=== PATIENT | female | born 1955 | race Caucasian/White ===

== ENCOUNTER → 2017-05-06 | Outpatient (CLI) | payer BC ==
--- NOTE | 2017-05-08 13:01 | MM ---
Reason for exam: screening (asymptomatic). Last mammogram was performed 1 year ago. History: Patient is postmenopausal. Took hormonal contraceptives for 4 years beginning at age 20. Physical Findings: A clinical breast exam by your physician is recommended on an annual basis and results should be correlated with mammographic findings. MG Screening Mammo w CAD Bilateral CC and MLO view(s) were taken. Prior study comparison: April 30, 2016, bilateral MG screening mammo w CAD. April 28, 2015, bilateral MG screening mammo w CAD. The breast tissue is heterogeneously dense. This may lower the sensitivity of mammography. No significant changes when compared with prior studies. ASSESSMENT: Benign, BI-RAD 2 RECOMMENDATION: Routine screening mammogram of both breasts in 1 year.
== END | disposition home or self-care (01) ==
LOC: RADMAMWWP 13:38
PROVIDERS: ATTEND Family Medicine
DX: Z12.31 Encounter for screening mammogram for malignant neoplasm of breast (principal)

== ENCOUNTER → 2018-05-07 | Outpatient (CLI) | payer BC ==
--- NOTE | 2018-05-09 07:47 | MM ---
Reason for exam: screening (asymptomatic). Last mammogram was performed 1 year ago. History: Patient is postmenopausal. Took hormonal contraceptives for 4 years beginning at age 20. Physical Findings: A clinical breast exam by your physician is recommended on an annual basis and results should be correlated with mammographic findings. MG 3D Screening Mammo W/Cad Bilateral CC and MLO view(s) were taken. Prior study comparison: May 06, 2017, bilateral MG screening mammo w CAD. April 30, 2016, bilateral MG screening mammo w CAD. There are scattered fibroglandular densities. No significant changes when compared with prior studies. ASSESSMENT: Benign, BI-RAD 2 RECOMMENDATION: Routine screening mammogram of both breasts in 1 year.
== END | disposition home or self-care (01) ==
LOC: RADMAMWWP 10:33
PROVIDERS: ATTEND Family Medicine
DX: Z12.31 Encounter for screening mammogram for malignant neoplasm of breast (principal)
CPT/HCPCS: 77063; 77067

== ENCOUNTER 2019-03-23 07:39 | Day surgery (SDC) | payer BC ==
[2019-03-18 16:53] VITALS: BMI 20.7
[~2019-03-23 07:39] MED LIST: LACTATED RINGERS 1,000 ML IV SCH
[2019-03-23 08:12] VITALS: TEMP 96.6
[2019-03-23] MEDS ORDERED: LIDOCAINE 1% 20 ML VIAL (10MG/ML) FOR IV START INTRADERMA ONE (08:18)
[2019-03-23 08:22] LABS: Glucose,Whole Blood 137 mg/dL (75-99)
[2019-03-23] MEDS ORDERED: PROPOFOL 10 MG/ML 20 ML VIAL IV ONE (09:11)
[2019-03-23] MEDS ORDERED: LIDOCAINE 1% INJ 10MG/ML (20 ML MDV) ONE (09:11)
--- NOTE | 2019-03-23 09:38 | P.PCN ---
Date of Procedure: 03/23/19 Procedure(s) Performed: Procedure: Total colonoscopy. Preoperative diagnosis: Screening for neoplasia. Postoperative diagnosis: Mild sigmoid diverticulosis, otherwise, exam to the cecum shows no evidence of acute diverticulitis, strictures, polyps or cancer. Preparation: HalfLytely prep. Sedation: Was provided by anesthesia. Brief clinical history: The patient is a 63-year-old female who is scheduled for this evaluation for screening for neoplasia age being her risk factor. Her prior exam was 8-10 years ago. The patient has no abdominal complaints, bleeding or anemia. Procedure: With the patient on her left lateral decubitus position and after informed consent and adequate sedation, the perianal area was inspected and it did not show any fissures or fistulas. There were no masses felt on digital rectal examination. The Olympus CFH 190L video colonoscope was then inserted in the rectum in the usual fashion and advanced to the cecum. There were few small diverticular orifices seen scattered in the distal sigmoid but I saw no evidence of acute diverticulitis or strictures. The mucosa appeared healthy. No polyps or tumors were seen. I retroflexed the endoscope in the rectum before the endoscope was withdrawn. The patient tolerated the procedure well. Plan: The patient was reassured. Discussed dietary measures. She will follow- up with you as planned and I recommended repeat exam in 10 years.
[2019-03-23 09:45] VITALS: RESP 16
[2019-03-23 09:52] VITALS: BP 102/70; PULSE 75
== END 2019-03-23 10:21 | disposition home or self-care (01) ==
LOC: ORWHC2ENDO 07:39
DX: Z12.11 Encounter for screening for malignant neoplasm of colon (principal); K57.30 Diverticulosis of large intestine without perforation or abscess without bleeding; E11.9 Type 2 diabetes mellitus without complications; K21.9 Gastro-esophageal reflux disease without esophagitis; E78.5 Hyperlipidemia, unspecified; I10 Essential (primary) hypertension; G80.9 Cerebral palsy, unspecified; Z98.51 Tubal ligation status
CPT/HCPCS: J2001; J2704; G0121; 45378

== ENCOUNTER → 2019-05-18 | Outpatient (CLI) | payer BC ==
--- NOTE | 2019-05-19 08:05 | MM ---
Reason for exam: screening (asymptomatic). Last mammogram was performed 1 year ago. History: Patient is postmenopausal. Took hormonal contraceptives for 4 years beginning at age 20. Physical Findings: A clinical breast exam by your physician is recommended on an annual basis and results should be correlated with mammographic findings. MG 3D Screening Mammo W/Cad Bilateral CC and MLO view(s) were taken. Prior study comparison: May 07, 2018, bilateral MG 3d screening mammo w/cad. May 06, 2017, bilateral MG screening mammo w CAD. The breast tissue is heterogeneously dense. This may lower the sensitivity of mammography. Stable benign calcifications. No significant changes when compared with prior studies. ASSESSMENT: Benign, BI-RAD 2 RECOMMENDATION: Routine screening mammogram of both breasts in 1 year.
== END | disposition home or self-care (01) ==
LOC: RADMAMWWP 08:05
PROVIDERS: ATTEND Family Medicine
DX: Z12.31 Encounter for screening mammogram for malignant neoplasm of breast (principal)
CPT/HCPCS: 77063; 77067

== ENCOUNTER → 2019-05-18 | Outpatient (CLI) | payer BC | END | disposition home or self-care (01) | LOC: LABWHC1 08:35 | PROVIDERS: ATTEND Orthopaedic Surgery | DX: Z01.812 Encounter for preprocedural laboratory examination (principal); M16.11 Unilateral primary osteoarthritis, right hip | CPT/HCPCS: 87070 ==

== ENCOUNTER → 2019-05-21 | Outpatient (CLI) | payer BC ==
[2019-05-21 16:40] LABS: HCT 44.9 % (34.0-46.0); HGB 15.1 gm/dL (11.4-16.0); MCH 31.5 pg (25.0-35.0); MCHC 33.6 g/dL (31.0-37.0); MCV 93.8 fL (80.0-100.0); Mean Platelet Volume 7.2; Platelet Count 269 k/uL (150-450); RBC 4.79 m/uL (3.80-5.40); RDW 13.3 % (11.5-15.5); WBC 8.9 k/uL (3.8-10.6)
[2019-05-21 16:50] LABS: ALT 28 U/L (9-52); AST 28 U/L (14-36); African American GFR (CKD) >90 (>60 ml/min/1.73 sqM); Albumin 4.6 g/dL (3.5-5.0); Alkaline Phosphatase 51 U/L (38-126); Anion Gap 13 mmol/L; Blood Urea Nitrogen 20 mg/dL (7-17); Calcium 9.8 mg/dL (8.4-10.2); Carbon Dioxide 26 mmol/L (22-30); Chloride 103 mmol/L (98-107); Glucose 122 mg/dL (74-99); Potassium 3.4 mmol/L (3.5-5.1); Sodium 142 mmol/L (137-145); Total Bilirubin 0.7 mg/dL (0.2-1.3); Total Protein 7.7 g/dL (6.3-8.2)
[2019-05-21 16:58] LABS: Prothrombin Time 10.7 sec (9.0-12.0)
== END | disposition home or self-care (01) ==
LOC: LABPAT 15:58
PROVIDERS: ATTEND Orthopaedic Surgery
DX: Z01.812 Encounter for preprocedural laboratory examination (principal)
CPT/HCPCS: 36415; 80053; 85027; 85610

== ENCOUNTER 2019-05-25 08:59 | Inpatient (IN) | payer BC ==
[2019-05-15 09:32] VITALS: BMI 20.2
--- NOTE | 2019-05-24 19:20 | HP ---
HISTORY AND PHYSICAL REASON FOR ADMISSION: Surgery is scheduled for 05/25/2019 HISTORY OF PRESENT ILLNESS: This is a 63-year-old patient seen with symptomatic right hip osteoarthritis. We discussed options for treatment. She elected to proceed with right total hip arthroplasty. Consent was obtained. Medical clearance was provided by Dr. Israel Russell. PAST MEDICAL HISTORY: Gml-okjrrto-vmkhlcmpg diabetes, hyperlipidemia, hypertension, cerebral palsy. PAST SURGICAL HISTORY: section, right arm reconstruction. MEDICATIONS: Atenolol, atorvastatin, losartan, metformin, omeprazole. ALLERGIES: None. SOCIAL HISTORY: She denies tobacco use. PHYSICAL EXAMINATION: Physical evaluation of the right hip: There is limited range of motion. Diffuse muscular atrophy consistent with her history of cerebral palsy, spasticity of the right lower extremity, right lower extremity approximately 2 inches shorter than the left. Impingement sign is positive. Distal neurovascular exam is intact. RADIOGRAPHS: Right hip radiographs reveal severe osteoarthritic changes. IMPRESSION: 1. Right hip osteoarthritis. 2. Cerebral palsy. 3. Hypertension. 4. Hyperlipidemia. 5. Tcb-wlkvlne-tiytaqeoh diabetes. PLAN: Direct anterior right total hip arthroplasty. Surgery 05/25/2019. MMODL / IJN: [id number] /
[~2019-05-25 08:59] MED LIST changes: +ACETAMINOPHEN TAB 500 MG TAB PO ONE; +HYDROmorphone 0.5 MG/0.5 ML SYRINGE IVP PRN; -LACTATED RINGERS 1,000 ML IV SCH; +LIDOCAINE 1% 20 ML VIAL (10MG/ML) FOR IV START INTRADERMA PRN; +MELOXICAM 7.5 MG TAB PO ONE; +ONDANSETRON 4 MG/2 ML VIAL IVP ONE; +ROPIVACAINE 246.25 MG, EPINEPHrine 0.5 MG, KETOROLAC 30 MG, cloNIDine HCL/PF 80 MCG, WA... MISCELLANE ONE; +TRANEXAMIC ACID 1,000 MG in SODIUM CHLORIDE 0.9% 100 ML IVPB ONE
[2019-05-25] MEDS ORDERED: ROPIVACAINE 246.25 MG, EPINEPHrine 0.5 MG, KETOROLAC 30 MG, cloNIDine HCL/PF 80 MCG, WA... MISCELLANE ONE ×5 (09:31)
[2019-05-25] MEDS ORDERED: DEXAMETHASONE SOD PHOSPHATE 10 MG/ML 1 ML VIAL IV ONE (09:50)
[2019-05-25] MEDS: LACTATED RINGERS 1,000 ML IV SCH ×4 (09:52→23:32)
[2019-05-25 10:02] LABS: Glucose,Whole Blood 139 mg/dL (75-99)
[2019-05-25] MEDS ORDERED: ePHEDrine SULFATE/0.9% NACL/PF 50 MG/5 ML SYRINGE IV ONE (10:07)
[2019-05-25] MEDS ORDERED: PHENYLEPHRINE-0.9% NACL SYG 1 MG/10 ML SYRINGE ONE (10:07)
[2019-05-25] MEDS ORDERED: TRANEXAMIC ACID 1,000 MG/10 ML VIAL ONE (10:07)
[2019-05-25] MEDS ORDERED: fentaNYL (PF) 50 MCG/ML 2 ML AMP ONE (10:07)
[2019-05-25] MEDS ORDERED: MIDAZOLAM 2 MG/2 ML VIAL ONE (10:07)
[2019-05-25] MEDS ORDERED: PROPOFOL 10 MG/ML 20 ML VIAL IV ONE (10:07)
[2019-05-25] MEDS ORDERED: LIDOCAINE 1% INJ 10MG/ML (20 ML MDV) ONE (10:07)
[2019-05-25] MEDS ORDERED: SODIUM CHLORIDE 0.9% 100 ML BAG ONE (10:07)
[2019-05-25] MEDS ORDERED: GLYCOPYRROLATE 0.2 MG/ML 2 ML VIAL ONE (10:07)
[2019-05-25] MEDS ORDERED: LACTATED RINGERS 1,000 ML IV ONE ×2 (10:09→12:01)
[2019-05-25] MEDS ORDERED: ceFAZolin 3,000 MG in SODIUM CHLORIDE 0.9% IRRIGATIO 3,000 ML IRRIGATION ONE (10:47)
[2019-05-25] MEDS ORDERED: HYDROcodone/APAP 5-325MG 1 EACH TAB PO PRN (11:52)
[2019-05-25] MEDS ORDERED: NALOXONE 0.4 MG/ML 1 ML VIAL IV PRN (11:52)
[2019-05-25] MEDS ORDERED: HYDROmorphone 0.5 MG/0.5 ML SYRINGE IVP PRN ×2 (11:52)
[2019-05-25] MEDS ORDERED: HYDROmorphone 1 MG/ML 1 ML SYRINGE IVP PRN (11:52)
--- NOTE | 2019-05-25 11:52 | P.OP ---
Date of Procedure: 05/25/19 Preoperative Diagnosis: Right hip osteoarthritis Postoperative Diagnosis: Right hip osteoarthritis Procedure(s) Performed: Direct anterior right total hip arthroplasty Implants: 1. Depuy Corail KA size 11 standard collar press-fit femoral stem 2. Depuy pinnacle 52 mm press-fit acetabular shell 3. Depuy pinnacle polyethylene acetabular liner neutral 36 mm ID 50 mm OD 4. Depuy metal femoral head 36 mm -2 Anesthesia: local, spinal Surgeon: Ludwin Bell Gear Straightener #1: Riaz Last Estimated Blood Loss (ml): 150 Pathology: other (Femoral head) Condition: stable Disposition: PACU Indications for Procedure: 63-year-old patient seen with symptomatic right hip osteoarthritis. After treatment options were discussed, she elected to proceed with total hip arthroplasty. Operative Findings: See description of procedure Description of Procedure: The patient was taken to the operative suite. Patient underwent a spinal anesthetic by the department of anesthesia. Patient was then transferred to the [place] table. Patient was given preoperative IV antibiotics and TXA. Both lower extremities were placed in standard leg spars. The hip was then prepped and draped in the normal sterile orthopedic fashion. A standard anterior incision was made beginning 3 cm lateral and 1 cm distal to the ASIS extending 10 cm. Dissection was then carried down through the subcutaneous soft tissues down to the fascia overlying the tensor fascia juan josé. An incision was now made through the fascia. Careful dissection was taken down exposing the tensor fascia juan josé muscle. A Cobra retractor was now placed along the medial femoral neck and a second one along the lateral femoral neck. The venous circumflex vessels were now identified, cauterized and clipped. We identified the anterior hip capsule. An incision was made through the hip capsule along the lateral border. I performed a partial anterior capsulectomy. Retractors were now placed around the femoral neck itself. A femoral neck cut was now made with a sagittal saw. It was completed with an osteotome at the lateral neck area. The femoral head was now removed without difficulty. The extremity was now rotated to 45 of external rotation. It was locked in position. Residual labrum was now debrided out. Serial reaming was performed of the acetabulum while Rubén COBURN assisted holding an anterior retractor for exposure. Once we reached the appropriate size and a trial was position and fit nicely. The appropriate size was now chosen opened and made available. It was introduced into the acetabulum without difficulty. The C-arm/fluoroscopy was now brought into the operative field. We made sure we had a true AP pelvic view. We now under direct C- arm/fluoroscopy introduced into the acetabular component with appropriate version and inclination. I held the cup in appropriate position well Rubén COBURN used a mallet to seat the acetabular component. I noted the component now to be well seated and stable. Acetabular cup introduce her was removed. The C-arm was pulled back. An appropriate liner was introduced and clicked into position. It was felt to be stable. At this point retractors were removed. The extremity was now placed into 120 external rotation with no traction. The leg was now dropped to the ground and adducted. Appropriate retractors were now positioned along the proximal femur. We also placed our femoral look into position. Additional capsular releasing was performed to gain access to the proximal femur. We now used a box osteotome. A canal finder was now utilized. Serial broaching was now performed with the assistance of Rubén COBURN tapping the broaches down with a mallet while held the broach in appropriate rotation and position. This was done until we reached the appropriate size with good overall rotational stability. Appropriate calcar planing was performed. A trial head/neck was placed into position. The hip was now reduced. The C- arm/fluoroscopy was brought back into the operative field. A spot film was obtained of the nonoperative hip. A spot film was obtained of the trial components. Overlays were performed, we noted good overall alignment and positioning for determining leg length. The C-arm/fluoroscopy was pulled back. Retractors were repositioned and the hip was dislocated. The leg was again taken down to the ground and adducted. Appropriate retractors were repositioned as well as the femoral hook. All trial components were removed. The femoral implant was opened along with the femoral head. The femoral implant was introduced on the appropriate handle into our pre-broached area. I held the component position well Rubén COBURN used a mallet to seat the femoral component. The femoral component was now noted to be well seated and stable.. The femoral head was introduced with good positioning and fixation noted. Retractors were now removed. The hip was now reduced. There appeared be good positioning of the hip confirmed on intraoperative fluoroscopy. Spot films were obtained to document this. A second gram of TXA was given. The deep and superficial soft tissues were infiltrated with local analgesic. Bipolar cautery had been utilized intermittently through the procedure for hemostasis. The wound was irrigated copiously with pulse lavage mechanical irrigation. The fascia was repaired with Vicryl suture. The subcutaneous soft tissues were repaired in layers with Vicryl suture. The skin was approximated with pernio/Dermabond. Sterile dressings were applied. Patient was then awakened, transferred to a bed and taken to recovery in stable condition. Rubén COBURN assisted with the complex procedure.
--- NOTE | 2019-05-25 11:56 | FL ---
Fluoroscopy HISTORY: Anterior hip replacement 21 seconds fluoroscopy time supplied to the referring clinician. 1 intraoperative C-arm images docum ent the procedure. See dictated report from orthopedic surgery.
--- NOTE | 2019-05-25 11:56 | XR ---
Limited right hip HISTORY: Anterior hip replacement Intraoperative C-arm image documents the procedure.
[2019-05-25 13:03] LABS: Glucose,Whole Blood 128 mg/dL (75-99)
[2019-05-25] MEDS ORDERED: PANTOPRAZOLE 40 MG TABLET PO PRN (15:26)
--- NOTE | 2019-05-25 17:00 | P.CONS ---
History of Present Illness - Reason for Consult Consult date: 05/25/19 Medical management Requesting physician: Ludwin Bell - Chief Complaint Medical management - History of Present Illness 63-year-old female with PMH of cerebral palsy with contractures to the right upper and right lower extremity, diabetes mellitus, hypertension, hyperlipidemia presents to [facility] for elective right hip replacement. Patient was seen and examined after the procedure. There are no immediate postoperative complications. Patient complains of a mild vague pain in the right hip, very manageable with current Gerald dose. She denies any chest pain, shortness of breath or palpitations. No nausea or vomiting. No fever or chills. Patient states that she has not urinated since her surgery. She has not had a bowel movement, also not passing gas at this time. Patient denies any headache, lower extremity edema, cough, chest pain, shortness of breath, palpitations, numbness/weakness/tingling of the extremities. Review of Systems Pertinent positives and negatives as discussed in HPI, a complete review of systems was performed and all other systems are negative. Past Medical History Past Medical History: Diabetes Mellitus, GERD/Reflux, Hyperlipidemia, Hypertension, Neurologic Disorder Additional Past Medical History / Comment(s): Cerebral Palsy - effecting rt side, states has little control of rt arm, History of Any Multi-Drug Resistant Organisms: None Reported Past Surgical History: Section, Orthopedic Surgery, Tubal Ligation Additional Past Surgical History / Comment(s): Rt arm surgeries x3, colonoscopy Past Anesthesia/Blood Transfusion Reactions: No Reported Reaction Smoking Status: Former smoker - Past Family History Mother Family Medical History: No Reported History Medications and Allergies Home Medications Medication Instructions Recorded Confirmed Type Atenolol/Chlorthalidone 1 tab PO QAM 08/27/14 05/25/19 History [Atenolol-Chlorthalidone 100-25] Atorvastatin [Lipitor] 80 mg PO DAILY 08/27/14 05/25/19 History Losartan [Cozaar] 50 mg PO QAM 08/27/14 05/25/19 History Multivitamin [Children's 1 tab PO DAILY 08/27/14 05/25/19 History Multivitamins] Omeprazole [PriLOSEC] 20 mg PO AC-BID PRN 08/27/14 05/25/19 History metFORMIN HCL [Glucophage Xr] 1,000 tab PO DAILY 08/27/14 05/25/19 History Cinnamon Bark [Cinnamon] 1,000 mg PO DAILY 03/18/19 05/25/19 History Empagliflozin/Linagliptin 1 tab PO DAILY 03/18/19 05/25/19 History [Glyxambi 25 mg-5 mg Tablet] Acetaminophen Tab [Tylenol Tab] 650 mg PO Q6H PRN 05/15/19 05/25/19 History Cholecalciferol [Vitamin D3 (25 1,000 unit PO DAILY 05/15/19 05/25/19 History Mcg = 1000 Iu)] Vit C/E/Zn/Coppr/Lutein/Zeaxan 1 cap PO DAILY 05/25/19 05/25/19 History [Preservision Areds 2 Softgel] Allergies Allergy/AdvReac Type Severity Reaction Status Date / Time shellfish derived AdvReac Nausea & Verified 05/25/19 12:16 Vomiting Physical Exam Vitals: Vital Signs Temp Pulse Pulse Resp BP Pulse Ox 05/25/19 14:55 70 102/65 98 05/25/19 14:40 73 100/65 98 05/25/19 14:25 74 101/52 100 05/25/19 14:10 77 91/62 100 05/25/19 13:55 76 101/67 99 05/25/19 13:40 72 101/68 100 05/25/19 13:25 81 135/72 97 05/25/19 13:10 79 139/72 97 05/25/19 12:55 77 100/59 92 L 05/25/19 12:40 78 16 99/51 97 05/25/19 12:25 74 18 92/50 95 05/25/19 12:11 97.3 F L 76 18 116/58 96 05/25/19 09:50 97.4 F L 90 16 120/58 97 Intake and Output 05/25/19 05/25/19 05/25/19 06:59 14:59 22:59 Intake Total 1251 Output Total 150 Balance 1101 Intake: IV 1251 Output: Estimated Blood Loss 150 General: [non toxic], [no distress], [appears at stated age] Derm: [warm], [dry] Head: [atraumatic], [normocephalic], [symmetric] Eyes: [EOMI], [no lid lag], [anicteric sclera] Mouth: [no lip lesion], [mucus membranes moist] Cardiovascular: [S1S2 reg], [no murmur], [positive DP pulse bilateral], Lungs: [CTA bilateral], [no rhonchi, no rales] , [no accessory muscle use] Abdominal: [soft], [ nontender to palpation], [no guarding], [no appreciable organomegaly] Ext: [no gross muscle atrophy], [no edema], [right upper extremity contracture], [right lower extremity unable to plantar or dorsiflex foot], [surgical dressing clean dry and intact, nontender to palpation] Neuro: [ CN II-XI grossly intact], [no focal neuro deficits except for the above] Psych: [Alert], [oriented], [appropriate affect] Results CBC & Chem 7: 05/25/19 09:53 Labs: Abnormal Lab Results - Last 24 Hours (Table) 05/25/19 05/25/19 Range/Units 09:57 12:37 POC Glucose (mg/dL) 139 H 128 H (75-99) mg/dL Assessment and Plan Assessment: Assessment and Plan Hypertension Diabetes mellitus Hyperlipidemia Right hip osteoarthritis post right total hip arthroplasty BP 102/65. Plans: Continue chlorthalidone and atenolol. Continue losartan. Monitor vitals, adjust medications as necessary. Merzz-ua-eneb glucose 128. Plans: Insulin sliding scale. Regular Accu-Cheks. Hypoglycemic precautions. Plans: Continue atorvastatin. Plans: Management as per orthopedic surgery. Follow PT and OT recommendations. Patient admitted after right total hip arthroplasty. She is pending clinical improvement. Likely DC 1-2 days. DVT prophylaxis: [Lovenox] Discussed with: [Patient and daughter] Anticipated discharge: [1-2 days] Anticipated discharge place: [Home] A total of [30] minutes was spent on the care of this complex patient more than 50% of the time was spent in counseling and care coordination. Patient names her Jamin decision-maker in the case that she can't make decisions for herself. Patient elects to be full code at this time.
[2019-05-25 17:19] LABS: Glucose,Whole Blood 120 mg/dL (75-99)
[2019-05-25] MEDS: INSULIN ASPART (NovoLOG) 100 UNIT/ML VIAL SQ SCH ×2 (17:55→21:37)
[2019-05-25 21:29] LABS: Glucose,Whole Blood 120 mg/dL (75-99)
[2019-05-25] MEDS: SENNOSIDES-DOCUSATE SODIUM 1 EACH TAB PO SCH (21:33)
[2019-05-25] MEDS: HYDROcodone/APAP 5-325MG 1 EACH TAB PO PRN (21:33)
[2019-05-25] MEDS: ONDANSETRON 4 MG/2 ML VIAL IVP PRN (23:46)
[2019-05-26] MEDS: HYDROcodone/APAP 5-325MG 1 EACH TAB PO PRN (05:58)
[2019-05-26 07:10] LABS: Glucose,Whole Blood 127 mg/dL (75-99)
[2019-05-26] MEDS: INSULIN ASPART (NovoLOG) 100 UNIT/ML VIAL SQ SCH ×4 (07:33→21:00)
[2019-05-26 07:47] LABS: Basophils % (A) 0 %; Eosinophils % (A) 1 %; HCT 31.1 % (34.0-46.0); Lymphocytes # (A) 1.1 k/uL (1.0-4.8); Lymphocytes % (A) 14 %; MCH 31.5 pg (25.0-35.0); MCHC 34.8 g/dL (31.0-37.0); MCV 90.6 fL (80.0-100.0); Mean Platelet Volume 7.8; Monocytes # (A) 0.5 k/uL (0-1.0); Monocytes % (A) 6 %; Neutrophils # (A) 6.1 k/uL (1.3-7.7); Neutrophils % (A) 78 %; Platelet Count 175 k/uL (150-450); RBC 3.44 m/uL (3.80-5.40); RDW 14.2 % (11.5-15.5); WBC 7.8 k/uL (3.8-10.6)
[2019-05-26 07:48] LABS: HGB 10.8 gm/dL (11.4-16.0)
[2019-05-26] MEDS: ATORVASTATIN 80 MG TAB PO SCH (08:09)
[2019-05-26] MEDS: MELOXICAM 7.5 MG TAB PO SCH (08:10)
[2019-05-26] MEDS: ENOXAPARIN 40 MG/0.4 ML SYRINGE SQ SCH (08:10)
[2019-05-26] MEDS: ONDANSETRON 4 MG/2 ML VIAL IVP PRN (08:20)
[2019-05-26] MEDS ORDERED: CHLORTHALIDONE PO SCH (09:00)
[2019-05-26] MEDS ORDERED: ATENOLOL PO SCH (09:00)
[2019-05-26] MEDS ORDERED: FAMOTIDINE 20 MG TAB PO SCH (09:00)
[2019-05-26] MEDS: LOSARTAN 50 MG TAB PO SCH (09:24)
[2019-05-26] MEDS: ATENOLOL 50 MG TAB PO SCH (09:24)
[2019-05-26] MEDS: CHLORTHALIDONE 25 MG TAB PO SCH (09:24)
[2019-05-26] MEDS ORDERED: ONDANSETRON 4 MG/2 ML VIAL IVP PRN (10:42)
--- NOTE | 2019-05-26 10:46 | P.PN ---
Subjective Progress Note Date: 05/26/19 Principal diagnosis: Status post direct anterior right total hip arthroplasty Patient evaluated at bedside today, she is resting in her hospital chair. Early this morning patient developed significant nausea and has vomited on a few different occasions. She did take an oral [place] this morning, imagine she did not eat before this. She's ambulate a very minimal limp therapy at this time. Denies any chest pain or shortness of breath currently. Objective - Vital Signs Vital signs: Vital Signs Temp 98.4 F 05/26/19 07:00 Pulse 67 05/26/19 07:00 Resp 16 05/26/19 07:00 BP 91/48 05/26/19 07:00 Pulse Ox 96 05/26/19 07:00 Intake & Output 05/25/19 05/26/19 05/26/19 18:59 06:59 18:59 Intake Total 1251 1540 Output Total 150 100 Balance 1101 1440 Intake: IV 1251 Intake, IV Titration 800 Amount Lactated Ringers 1,000 ml 800 @ 80 mls/hr IV .[id number] HORACIO Rx#:[id number] Oral 740 Output: Emesis 100 Estimated Blood Loss 150 Other: # Voids 1 1 - Exam Right lower extremity: Incision is clean, dry, and intact. The exofin fusion tape is in good condition. There is minimal soft tissue swelling and ecchymosis surrounding the medial and lateral aspects of the incision. Calf is soft, no tenderness with palpation. Plantar flexion, dorsiflexion, EHL, FHL are intact. Sensory exam to light touch throughout the extremity is intact, dorsal pedis pulses 2+. - Labs CBC & Chem 7: 05/26/19 06:55 05/25/19 09:53 Labs: Abnormal Lab Results - Last 24 Hours (Table) 05/25/19 05/25/19 05/25/19 Range/Units 12:37 17:17 21:28 RBC (3.80-5.40) m/uL Hgb (11.4-16.0) gm/dL Hct (34.0-46.0) % POC Glucose (mg/dL) 128 H 120 H 120 H (75-99) mg/dL 05/26/19 05/26/19 Range/Units 06:55 07:08 RBC 3.44 L (3.80-5.40) m/uL Hgb 10.8 L D (11.4-16.0) gm/dL Hct 31.1 L (34.0-46.0) % POC Glucose (mg/dL) 127 H (75-99) mg/dL Assessment and Plan Plan: Assessment: Postoperative day #1 status post right total hip arthroplasty Plan: Pain control, holding narcotics at this time, utilize oral Tylenol as needed GI and DVT prophylaxis, continue current medication Wound care instructions discussed Icing and elevating of the leg Continue with therapy [place] diet at this time Medical recommendations Discharge planning: Hopeful discharge to home tomorrow Time with Patient: Less than 30
[2019-05-26 11:47] LABS: Glucose,Whole Blood 123 mg/dL (75-99)
--- NOTE | 2019-05-26 12:04 | P.PN ---
Subjective Progress Note Date: 05/26/19 Principal diagnosis: medical management patient was seen and examined. No acute events overnight. Able to ambulate with physical today. Complains of 7 out of 10 right hip pain. Also complains of nausea, likely related to IV Dilaudid and a few episodes of vomiting overnight. She denies any chest pain, shortness of breath or palpitations. No fever or chills. Objective - Vital Signs Vital signs: Vital Signs Temp 98.4 F 05/26/19 07:00 Pulse 67 05/26/19 07:00 Resp 16 05/26/19 07:00 BP 91/48 05/26/19 07:00 Pulse Ox 96 05/26/19 07:00 Intake & Output 05/25/19 05/26/19 05/26/19 18:59 06:59 18:59 Intake Total 1251 1540 Output Total 150 100 Balance 1101 1440 Intake: IV 1251 Intake, IV Titration 800 Amount Lactated Ringers 1,000 ml 800 @ 80 mls/hr IV .[id number] HORACIO Rx#:[id number] Oral 740 Output: Emesis 100 Estimated Blood Loss 150 Other: # Voids 1 1 - Exam General: [non toxic], [no distress], [appears at stated age] Derm: [warm], [dry] Head: [atraumatic], [normocephalic], [symmetric] Eyes: [EOMI], [no lid lag], [anicteric sclera] Mouth: [no lip lesion], [mucus membranes moist] Cardiovascular: [S1S2 reg], [no murmur], [positive DP pulse bilateral], Lungs: [CTA bilateral], [no rhonchi, no rales] , [no accessory muscle use] Abdominal: [soft], [ nontender to palpation], [no guarding], [no appreciable organomegaly] Ext: [no gross muscle atrophy], [no edema], [right upper extremity contracture], [right lower extremity unable to plantar or dorsiflex foot], [surgical dressing clean dry and intact, nontender to palpation] Neuro: [ CN II-XI grossly intact], [no focal neuro deficits except for the above] Psych: [Alert], [oriented], [appropriate affect] - Labs CBC & Chem 7: 05/26/19 06:55 05/25/19 09:53 Labs: Abnormal Lab Results - Last 24 Hours (Table) 05/25/19 05/25/19 05/25/19 Range/Units 12:37 17:17 21:28 RBC (3.80-5.40) m/uL Hgb (11.4-16.0) gm/dL Hct (34.0-46.0) % POC Glucose (mg/dL) 128 H 120 H 120 H (75-99) mg/dL 05/26/19 05/26/19 05/26/19 Range/Units 06:55 07:08 11:46 RBC 3.44 L (3.80-5.40) m/uL Hgb 10.8 L D (11.4-16.0) gm/dL Hct 31.1 L (34.0-46.0) % POC Glucose (mg/dL) 127 H 123 H (75-99) mg/dL Assessment and Plan Assessment: Assessment and Plan Acute blood loss anemia Hypertension Diabetes mellitus Hyperlipidemia Right hip osteoarthritis post right total hip arthroplasty Hemoglobin 10.8. Unknown baseline. Surgical site clean. Plans: Repeat CBC tomorrow. BP 91/48. Plans: Continue chlorthalidone and atenolol. Continue losartan. Monitor vitals, adjust medications as necessary. [id number] glucose 123. Plans: Insulin sliding scale. Regular Accu-Cheks. Hypoglycemic precautions. Plans: Continue atorvastatin. Plans: Management as per orthopedic surgery. Follow PT and OT recommendations. Patient admitted after right total hip arthroplasty. She is pending clinical improvement. Likely DC 1-2 days. Patient names her Jamin decision-maker in the case that she can't make decisions for herself. Patient elects to be full code at this time.
[2019-05-26] MEDS: traMADol 50 MG TAB PO PRN ×3 (12:34→23:24)
[2019-05-26] MEDS: LACTATED RINGERS 1,000 ML IV SCH (14:48)
[2019-05-26] MEDS: ACETAMINOPHEN TAB 325 MG TAB PO PRN ×2 (15:01→21:04)
[2019-05-26 16:44] LABS: Glucose,Whole Blood 118 mg/dL (75-99)
[2019-05-26 20:52] LABS: Glucose,Whole Blood 126 mg/dL (75-99)
[2019-05-26] MEDS: SENNOSIDES-DOCUSATE SODIUM 1 EACH TAB PO SCH (21:04)
[2019-05-27] MEDS: LACTATED RINGERS 1,000 ML IV SCH ×3 (00:50→11:34)
[2019-05-27] MEDS: ACETAMINOPHEN TAB 325 MG TAB PO PRN (03:15)
[2019-05-27 06:48] LABS: Glucose,Whole Blood 109 mg/dL (75-99)
[2019-05-27] MEDS: INSULIN ASPART (NovoLOG) 100 UNIT/ML VIAL SQ SCH ×2 (07:20→11:34)
[2019-05-27 07:31] VITALS: BP 97/62; PULSE 79; RESP 15; TEMP 98.2
[2019-05-27] MEDS: MELOXICAM 7.5 MG TAB PO SCH (08:06)
[2019-05-27] MEDS: ATORVASTATIN 80 MG TAB PO SCH (08:06)
[2019-05-27] MEDS: LOSARTAN 50 MG TAB PO SCH (08:07)
[2019-05-27] MEDS: ENOXAPARIN 40 MG/0.4 ML SYRINGE SQ SCH (08:07)
[2019-05-27] MEDS: ATENOLOL 50 MG TAB PO SCH (08:07)
[2019-05-27] MEDS: CHLORTHALIDONE 25 MG TAB PO SCH (08:07)
[2019-05-27 11:29] LABS: Glucose,Whole Blood 129 mg/dL (75-99)
--- NOTE | 2019-05-27 12:05 | P.PN ---
Subjective Progress Note Date: 05/27/19 Principal diagnosis: Medical management Patient was seen and examined. No acute events overnight. Patient reports hip pain, well-controlled with current pain medication. Able to ambulate to the washroom with the aid of a walker without much difficulty. She denies any chest pain, shortness of breath or palpitations. No nausea or vomiting. No fever or chills. Tolerating diet well. Objective - Vital Signs Vital signs: Vital Signs Temp 98.2 F 05/27/19 07:00 Pulse 79 05/27/19 07:00 Resp 15 05/27/19 07:00 BP 97/62 05/27/19 07:00 Pulse Ox 92 L 05/27/19 07:00 Intake & Output 05/26/19 05/27/19 05/27/19 18:59 06:59 18:59 Intake Total 640 800 60 Balance 640 800 60 Intake: Intake, IV Titration 640 800 Amount Lactated Ringers 1,000 ml 640 800 @ 80 mls/hr IV .[id number] [facility] Rx#:[id number] Oral 60 Other: Voiding Method Toilet Toilet # Voids 3 3 - Exam General: [non toxic], [no distress], [appears at stated age] Derm: [warm], [dry] Head: [atraumatic], [normocephalic], [symmetric] Eyes: [EOMI], [no lid lag], [anicteric sclera] Mouth: [no lip lesion], [mucus membranes moist] Cardiovascular: [S1S2 reg], [no murmur], [positive DP pulse bilateral], Lungs: [CTA bilateral], [no rhonchi, no rales] , [no accessory muscle use] Abdominal: [soft], [ nontender to palpation], [no guarding], [no appreciable organomegaly] Ext: [no gross muscle atrophy], [no edema], [right upper extremity contracture], [right lower extremity unable to plantar or dorsiflex foot], [surgical dressing clean dry and intact, nontender to palpation] Neuro: [no focal neuro deficits except for the above] Psych: [Alert], [oriented], [appropriate affect] - Labs CBC & Chem 7: 05/26/19 06:55 05/25/19 09:53 Labs: Abnormal Lab Results - Last 24 Hours (Table) 05/26/19 05/26/19 05/27/19 Range/Units 16:43 20:41 06:46 POC Glucose (mg/dL) 118 H 126 H 109 H (75-99) mg/dL 05/27/19 Range/Units 11:17 POC Glucose (mg/dL) 129 H (75-99) mg/dL Assessment and Plan Assessment: Assessment and Plan Acute blood loss anemia Hypertension Diabetes mellitus Hyperlipidemia Right hip osteoarthritis post right total hip arthroplasty Hemoglobin 10.8. Unknown baseline. Surgical site clean. Plans: Monitor. BP 97/62. Plans: Continue chlorthalidone and atenolol. Continue losartan. Monitor vitals, adjust medications as necessary. [id number] glucose 129. Plans: Insulin sliding scale. Regular Accu-Cheks. Hypoglycemic precautions. Plans: Continue atorvastatin. Plans: Management as per orthopedic surgery. Follow PT and OT recommendations. Patient admitted after right total hip arthroplasty. Likely DC today. She has POD 2.
--- NOTE | 2019-05-27 12:45 | P.PN ---
Subjective Progress Note Date: 05/27/19 Principal diagnosis: Status post direct anterior right total hip arthroplasty Patient evaluated at bedside today, she is resting in her hospital chair. She is doing a lot better today, nausea. She's ambulated well with therapy. Denies any chest pain or shortness of breath currently. Objective - Vital Signs Vital signs: Vital Signs Temp 98.2 F 05/27/19 07:00 Pulse 79 05/27/19 07:00 Resp 15 05/27/19 07:00 BP 97/62 05/27/19 07:00 Pulse Ox 92 L 05/27/19 07:00 Intake & Output 05/26/19 05/27/19 05/27/19 18:59 06:59 18:59 Intake Total 640 800 60 Balance 640 800 60 Intake: Intake, IV Titration 640 800 Amount Lactated Ringers 1,000 ml 640 800 @ 80 mls/hr IV .[id number] [facility] Rx#:[id number] Oral 60 Other: Voiding Method Toilet Toilet # Voids 3 3 - Exam Right lower extremity: Incision is clean, dry, and intact. The exofin fusion tape is in good condition. There is minimal soft tissue swelling and ecchymosis surrounding the medial and lateral aspects of the incision. Calf is soft, no tenderness with palpation. Plantar flexion, dorsiflexion, EHL, FHL are intact. Sensory exam to light touch throughout the extremity is intact, dorsal pedis pulses 2+. - Labs CBC & Chem 7: 05/26/19 06:55 05/25/19 09:53 Labs: Abnormal Lab Results - Last 24 Hours (Table) 05/26/19 05/26/19 05/27/19 Range/Units 16:43 20:41 06:46 POC Glucose (mg/dL) 118 H 126 H 109 H (75-99) mg/dL 05/27/19 Range/Units 11:17 POC Glucose (mg/dL) 129 H (75-99) mg/dL Assessment and Plan Plan: Assessment: Postoperative day #2 status post right total hip arthroplasty Plan: Pain control, plan for discharge on tramadol, she can resume on Tylenol also GI and DVT prophylaxis, aspirin 81 mg twice a day Wound care instructions discussed Icing and elevating of the leg Home therapy after discharge Medical recommendations Discharge planning: Discharged home today Time with Patient: Less than 30
--- NOTE | 2019-05-27 12:47 | P.DS ---
Providers Date of admission: 05/25/19 08:59 Expected date of discharge: 05/27/19 Attending physician: Ludwin Bell Consults: 05/25/19 11:52 Consult Physician Routine Consulting Provider: Israel Russell Reason/Comments: Medical management Do you want consulting provider notified?: Yes Primary care physician: Israel Russell Hospital Course: Date of admission: 05/25/2019 Date of discharge: 05/27/2019 Admission diagnosis: Status post direct anterior right total hip arthroplasty Discharge diagnosis: Same Attending physician: Dr. Bell Surgical procedures: Direct anterior total hip arthroplasty Brief history: Patient is a 63-year-old female with a history of progressive primary right hip osteoarthritis. At this point patient has failed conservative treatment measures and has opted to proceed with a elective direct anterior total hip arthroplasty. Hospital course: Details of patient's surgery can be found in operative report. Patient tolerated the procedure well and was subsequently transported to orthopedic floor. Patient's orthopeidc and medical care was provided daily. Patient had daily laboratory tests performed for evaluation of overall blood c ounts. Patient had daily physical therapy to include strengthening range of motion as well as education with walker ambulation. Patient was treated with Lovenox for their postoperative DVT prophylaxis during their inpatient stay. Patient was noted to have a relatively uneventful postoperative course. Patient reported satisfactory pain control with oral pain medications by postoperative day 0. Patient showed satisfactory progress with physical therapy. Patient moved steadily through the program and had no difficulty meeting the goals by postoperative day 2. Given patient's otherwise satisfactory course and having met physical therapy goals, plan is to discharge patient home on postoperative day 2. Discharge condition/disposition: Patient will be discharged home in stable condition. Discharge medications: Instructions are given on resumption of patient's normal daily medications per primary care recommendation, in addition patient will be prescribed tramadol 50 mg, Colace 100 mg, aspirin 81 mg. Discharge instructions: 1. Wound care and infection precautions, keep incision dry and covered while showering, no lotions, creams, moisturizers. No soaking, tubs, pools, hottubs. Do not scrub over the incision. 2. Weight-bear as tolerated with walker / cane until follow-up. 3. Ice and elevate when necessary. Do not exceed 20 minutes per hour with ice pack. 4. Utilize compression sleeve until seen at first follow up appointment. 5. Visiting nursing care. 6. Home physical therapy. 7. Pain meds and anticoagulants per prescription. 8. Pain medication has potential to cause constipation. Increase oral fluid and fiber intake. Contact primary care provider if you have not had a bowel movement within 48 hours after discharge 9. No anti-inflammatory medication until discussed at first post operative visit, this including Motrin, Aleve, Mobic, Diclofenac. 10. Follow up in office at 2 weeks postop with Rubén Last PA-C 11. Follow up with your primary care doctor 7-10 days after discharge. 12. Contact [facility] with any questions, . Procedures: Direct anterior right total hip arthroplasty Patient Condition at Discharge: Good Plan - Discharge Summary Discharge Rx Participant: No New Discharge Prescriptions: New Aspirin [Adult Low Dose Aspirin EC] 81 mg PO BID #60 tablet. Docusate [Colace] 100 mg PO DAILY #30 capsule traMADol HCl [Ultram] 50 mg PO Q6H PRN #28 tab PRN Reason: Pain No Action Atenolol/Chlorthalidone [Atenolol-Chlorthalidone 100-25] 1 tab PO QAM Omeprazole [PriLOSEC] 20 mg PO AC-BID PRN PRN Reason: gerd Losartan [Cozaar] 50 mg PO QAM metFORMIN HCL [Glucophage Xr] 1,000 tab PO DAILY Atorvastatin [Lipitor] 80 mg PO DAILY Multivitamin [Children's Multivitamins] 1 tab PO DAILY Empagliflozin/Linagliptin [Glyxambi 25 mg-5 mg Tablet] 1 tab PO DAILY Cinnamon Bark [Cinnamon] 1,000 mg PO DAILY Cholecalciferol [Vitamin D3 (25 Mcg = 1000 Iu)] 1,000 unit PO DAILY Acetaminophen Tab [Tylenol Tab] 650 mg PO Q6H PRN PRN Reason: Pain Vit C/E/Zn/Coppr/Lutein/Zeaxan [Preservision Areds 2 Softgel] 1 cap PO DAILY Discharge Medication List Atenolol/Chlorthalidone [Atenolol-Chlorthalidone 100-25] 1 tab PO QAM 08/27/14 [History] Atorvastatin [Lipitor] 80 mg PO DAILY 08/27/14 [History] Losartan [Cozaar] 50 mg PO QAM 08/27/14 [History] Multivitamin [Children's Multivitamins] 1 tab PO DAILY 08/27/14 [History] Omeprazole [PriLOSEC] 20 mg PO AC-BID PRN 08/27/14 [History] metFORMIN HCL [Glucophage Xr] 1,000 tab PO DAILY 08/27/14 [History] Cinnamon Bark [Cinnamon] 1,000 mg PO DAILY 03/18/19 [History] Empagliflozin/Linagliptin [Glyxambi 25 mg-5 mg Tablet] 1 tab PO DAILY 03/18/19 [History] Acetaminophen Tab [Tylenol Tab] 650 mg PO Q6H PRN 05/15/19 [History] Cholecalciferol [Vitamin D3 (25 Mcg = 1000 Iu)] 1,000 unit PO DAILY 05/15/19 [History] Vit C/E/Zn/Coppr/Lutein/Zeaxan [Preservision Areds 2 Softgel] 1 cap PO DAILY 05/25/19 [History] Aspirin [Adult Low Dose Aspirin EC] 81 mg PO BID #60 tablet. 05/27/19 [Rx] Docusate [Colace] 100 mg PO DAILY #30 capsule 05/27/19 [Rx] traMADol HCl [Ultram] 50 mg PO Q6H PRN #28 tab 05/27/19 [Rx] Follow up Appointment(s)/Referral(s): Israel Russell MD [Primary Care Provider] - 06/01/19 11:45 am Ludwin Bell DO [Doctor of Osteopathic Medicine] - 06/09/19 11:30 am [facility], [NON-STAFF] - Activity/Diet/Wound Care/Special Instructions: Orthopedic Discharge Instructions: 1. Wound care and infection precautions, keep incision dry and covered while showering, no lotions, creams, moisturizers. No soaking, pools, hot tubs. Do not scrub over incision. 2. Weight-bear as tolerated with walker / cane until follow-up. 3. Ice and elevate when necessary. Do not exceed 20 minutes per hour with ice pack. 4. Utilize compression sleeve until seen at first follow up appointment. 5. Pain meds and anticoagulants per prescription. 6. Pain medication has potential to cause constipation. Increase oral fluid and fiber intake. Contact primary care provider if you have not had a bowel movement within 48 hours after discharge. 7. No anti-inflammatory medication until discussed at first post operative visit, this including Motrin, Aleve, Mobic, Diclofenac. 8. Follow up in office at 2 weeks postop with Rubén Last PA-C 9. Follow up with your primary care doctor 7-10 days after discharge. 10. Contact [facility] with any questions, . Discharge Disposition: HOME WITH HOME HEALTH SERVICES
[2019-05-27] MEDS: traMADol 50 MG TAB PO PRN (13:12)
== END 2019-05-27 14:11 | disposition home health service (06) | DRG 470 ==
LOC: 2ORMAIN 08:59 → 4SSUR 12:03
PROVIDERS: ADMIT Orthopaedic Surgery; ATTEND Orthopaedic Surgery
PROC: 0SR902A Replacement of Right Hip Joint with Metal on Polyethylene Synthetic Substitute, Uncemented, Open Approach (ICD-10-PCS; principal; 2019-05-25 10:15)
DX: M16.11 Unilateral primary osteoarthritis, right hip (principal); D62 Acute posthemorrhagic anemia; E11.9 Type 2 diabetes mellitus without complications; E78.5 Hyperlipidemia, unspecified; I10 Essential (primary) hypertension; K21.9 Gastro-esophageal reflux disease without esophagitis; G80.9 Cerebral palsy, unspecified; Z79.84 Long term (current) use of oral hypoglycemic drugs; Z79.899 Other long term (current) drug therapy; Z87.891 Personal history of nicotine dependence; Z98.891 History of uterine scar from previous surgery; Z98.51 Tubal ligation status; Z98.890 Other specified postprocedural states; Z91.013 Allergy to seafood
CPT/HCPCS: 73501; 84132; 85025; 86850; 86900; 86901; 88300

== ENCOUNTER → 2020-07-12 | Outpatient (CLI) | payer BC ==
--- NOTE | 2020-07-12 13:28 | MM ---
Reason for exam: screening (asymptomatic). Last mammogram was performed 1 year and 2 months ago. History: Patient is postmenopausal. Took hormonal contraceptives for 4 years beginning at age 20. Physical Findings: A clinical breast exam by your physician is recommended on an annual basis and results should be correlated with mammographic findings. MG 3D Screening Mammo W/Cad Bilateral CC and MLO view(s) were taken. Prior study comparison: May 18, 2019, bilateral MG 3d screening mammo w/cad. May 07, 2018, bilateral MG 3d screening mammo w/cad. The breast tissue is heterogeneously dense. This may lower the sensitivity of mammography. There are benign appearing round, dystrophic calcifications in the left breast. Asymmetric breast tissue left upper anterior position, stable since 2016. There is no discrete abnormality. ASSESSMENT: Benign, BI-RAD 2 RECOMMENDATION: Routine screening mammogram of both breasts in 1 year.
== END | disposition home or self-care (01) ==
LOC: RADMAMWWP 06:59
PROVIDERS: ATTEND Family Medicine
DX: Z12.31 Encounter for screening mammogram for malignant neoplasm of breast (principal)
CPT/HCPCS: 77063; 77067

== ENCOUNTER → 2021-12-06 | Outpatient (CLI) | payer MEDICARE ==
--- NOTE | 2021-12-07 14:43 | MM ---
Reason for exam: screening (asymptomatic). Last mammogram was performed 1 year and 5 months ago. History: Patient is postmenopausal. Took hormonal contraceptives for 4 years beginning at age 20. Physical Findings: A clinical breast exam by your physician is recommended on an annual basis and results should be correlated with mammographic findings. MG 3D Screening Mammo W/Cad Bilateral CC and MLO view(s) were taken. Prior study comparison: July 12, 2020, bilateral MG 3d screening mammo w/cad. May 18, 2019, bilateral MG 3d screening mammo w/cad. The breast tissue is heterogeneously dense. This may lower the sensitivity of mammography. No significant changes when compared with prior studies. ASSESSMENT: Benign, BI-RAD 2 RECOMMENDATION: Routine screening mammogram of both breasts in 1 year.
== END | disposition home or self-care (01) ==
LOC: RADMAMWWP 14:23
PROVIDERS: ATTEND Family Medicine
DX: Z12.31 Encounter for screening mammogram for malignant neoplasm of breast (principal)
CPT/HCPCS: 77063; 77067

== ENCOUNTER → 2023-12-12 | Outpatient (CLI) | payer MEDICARE ==
--- NOTE | 2023-12-13 08:45 | MM ---
Reason for Exam: Screening (asymptomatic). Last screening mammogram was performed 12 month(s) ago. Patient History: Menarche at age 15. First Full-Term at age 27. Postmenopausal. Hormonal Contraceptives for 4 years from age 20 until age 24. Niece had breast cancer under age 50. Risk Values: Shazia 5 year model risk: 1.7%. NCI Lifetime model risk: 5.9%. Prior Study Comparison: 07/12/2020 Bilateral Screening Mammogram, [facility]. 12/06/2021 Bilateral Screening Mammogram, [facility]. 12/10/2022 Bilateral MG 3D screening mammo w/cad, [facility]. Tissue Density: The breasts are heterogeneously dense, which may obscure small masses. Findings: Analyzed By CAD. There is no suspicious group of microcalcifications or new suspicious mass in either breast. Overall Assessment: Benign, BI-RAD 2 Management: Screening Mammogram of both breasts in 1 year. . Patient should continue monthly self-breast exams. A clinical breast exam by your physician is recommended on an annual basis. This exam should not preclude additional follow-up of suspicious palpable abnormalities. Note on Shazia scores and lifetime risk: 1. A Shazia score greater than 3% is considered moderate risk. If this is the case, consider specialist referral to assess eligibility for a risk reducing agent. 2. If overall lifetime risk for the development of breast cancer is 20% or higher, the patient may qualify for future screening with alternating mammogram and breast MRI. Electronically signed and approved by: Cade Saucedo M.D. Radiologis
== END | disposition home or self-care (01) ==
LOC: RADMAMWWP 08:59
PROVIDERS: ATTEND Family Medicine
DX: Z12.31 Encounter for screening mammogram for malignant neoplasm of breast (principal); Z78.0 Asymptomatic menopausal state; Z80.3 Family history of malignant neoplasm of breast
CPT/HCPCS: 77063; 77067

== ENCOUNTER → 2025-01-26 | Outpatient (CLI) | payer MEDICARE ==
--- NOTE | 2025-01-27 14:55 | MM ---
Reason for Exam: Screening (asymptomatic). Last mammogram was performed 1 year(s) and 1 month(s) ago. Patient History: Menarche at age 15. First Full-Term at age 27. Postmenopausal. Hormonal Contraceptives for 4 years from age 20 until age 24. Niece had breast cancer, age 37. Risk Values: Shazia 5 year model risk: 1.7%. NCI Lifetime model risk: 5.6%. Prior Study Comparison: 12/06/2021 Bilateral Screening Mammogram, [facility]. 12/10/2022 Bilateral MG 3D screening mammo w/cad, [facility]. 12/12/2023 Bilateral MG 3D screening mammo w/cad, [facility]. Tissue Density: The breasts are heterogeneously dense, which may obscure small masses. Findings: Analyzed By CAD. There is no suspicious group of microcalcifications in either breast. Nodular asymmetric density upper left breast 7 cm from the nipple with slight distortion suggested. Additional views are recommended of the left breast. Overall Assessment: Incomplete: need additional imaging evaluation, BI-RAD 0 Management: Diagnostic Mammogram of the left breast. . Patient should continue monthly self-breast exams. A clinical breast exam by your physician is recommended on an annual basis. This exam should not preclude additional follow-up of suspicious palpable abnormalities. Note on Shazia scores and lifetime risk: 1. A Shazia score greater than 3% is considered moderate risk. If this is the case, consider specialist referral to assess eligibility for a risk reducing agent. 2. If overall lifetime risk for the development of breast cancer is 20% or higher, the patient may qualify for future screening with alternating mammogram and breast MRI. [facility], , 01/26/2025 2:57 PM. Electronically signed and approved by: Cade Saucedo M.D. Radiologis
== END | disposition home or self-care (01) ==
LOC: RADMAMWWP 14:29
PROVIDERS: ATTEND Family Medicine
DX: Z12.31 Encounter for screening mammogram for malignant neoplasm of breast (principal); R92.333 Mammographic heterogeneous density, bilateral breasts; Z78.0 Asymptomatic menopausal state; Z92.0 Personal history of contraception; Z80.3 Family history of malignant neoplasm of breast
CPT/HCPCS: 77063; 77067

== ENCOUNTER → 2025-01-28 | Outpatient (CLI) | payer MEDICARE ==
--- NOTE | 2025-01-28 08:50 | MM ---
Reason for Exam: Additional evaluation requested from abnormal screening. Last screening mammogram was performed less than 1 month ago. Patient History: Menarche at age 15. First Full-Term at age 27. Postmenopausal. Hormonal Contraceptives for 4 years from age 20 until age 24. Niece had breast cancer, age 37. Risk Values: Shazia 5 year model risk: 1.7%. NCI Lifetime model risk: 5.6%. Prior Study Comparison: 12/10/2022 Bilateral MG 3D screening mammo w/cad, [facility]. 12/12/2023 Bilateral MG 3D screening mammo w/cad, [facility]. 01/26/2025 Bilateral MG 3D screening mammo w/cad, [facility]. Tissue Density: Left: The breasts are heterogeneously dense, which may obscure small masses. Findings: Analyzed By CAD. Asymmetric density does not persist upon spot compression imaging. Overall Assessment: Benign, BI-RAD 2 Management: Screening Mammogram of both breasts in 1 year. . Results were given to the patient verbally at the time of exam. Patient should continue monthly self-breast exams. A clinical breast exam by your physician is recommended on an annual basis. This exam should not preclude additional follow-up of suspicious palpable abnormalities. Note on Shazia scores and lifetime risk: 1. A Shazia score greater than 3% is considered moderate risk. If this is the case, consider specialist referral to assess eligibility for a risk reducing agent. 2. If overall lifetime risk for the development of breast cancer is 20% or higher, the patient may qualify for future screening with alternating mammogram and breast MRI. [facility], , 01/28/2025 8:46 AM. Electronically signed and approved by: Caed Saucedo M.D. Radiologis
== END | disposition home or self-care (01) ==
LOC: RADMAMWWP 08:20
PROVIDERS: ATTEND Family Medicine
DX: R92.8 Other abnormal and inconclusive findings on diagnostic imaging of breast (principal); R92.332 Mammographic heterogeneous density, left breast; Z78.0 Asymptomatic menopausal state; Z80.3 Family history of malignant neoplasm of breast
CPT/HCPCS: 77061; 77065